=== PATIENT | male | born 1985 | race Hispanic/Latino ===

== ENCOUNTER 2019-04-19 03:44 | Emergency (ER) | payer OTHER, SELFPAY ==
[2019-04-19] MEDS ORDERED: Ibuprofen 200 MG TAB ONE (04:03)
[2019-04-19] MEDS ORDERED: Ondansetron ODT 4 MG TAB ONE (04:12)
[2019-04-19] MEDS ORDERED: Acetaminophen 500 MG TAB ONE (04:46)
== END 2019-04-19 05:25 | disposition home or self-care (01) ==
LOC: NAV ERS 03:44
DX: J10.1 Influenza due to other identified influenza virus with other respiratory manifestations (principal); Z87.891 Personal history of nicotine dependence
CPT/HCPCS: 87081; 87430; 87804; 99283; Q0162

== ENCOUNTER 2019-11-22 20:36 | Emergency (ER) | payer SELFPAY ==
[~2019-11-22 20:36] MED LIST: Iopamidol 370 76% 100 ML VIAL ONE
[2019-11-22 20:46] LABS: #Eosinphils 0.2 thou/uL (0.0-0.7); #Lymphocytes 3.2 thou/uL (1.20-3.40); #Monocytes 0.8 thou/uL (0.11-0.59); #Neutrophils 2.3 thou/uL (1.40-6.50); %Basophils 0.7 % (0.0-1.0); %Eosinophils 3.1 % (0.0-10.0); %Lymphocytes 49.1 % (21.0-51.0); %Monocytes 11.7 % (0.0-10.0); %Neutrophils 35.5 % (42.0-75.0); Hemoglobin 13.7 g/dL (14.0-18.0); Mean Corpuscular HGB CONC 30.6 g/dL (32.0-36.0); Mean Corpuscular Hemoglobin 26.9 pg (27.0-31.0); Mean Corpuscular Volume 87.8 fL (78.0-98.0); Mean Platelet Volume 8.8 fL (7.4-10.4); Platelet Count 193 thou/uL (130-400); Red Blood Cell (RBC) Count 5.09 mill/uL (4.70-6.10); White Blood Cell (WBC) Count 6.5 thou/uL (4.8-10.8)
[2019-11-22 20:55] LABS: INR-International Normal Ratio 1.3; Prothrombin Time 16.3 sec (12.0-14.7)
[2019-11-22 20:56] LABS: PTT 33.9 sec (22.9-36.1)
[2019-11-22 21:05] LABS: ALT (SGPT) 32 U/L (8-55); AST (SGOT) 23 U/L (5-34); Albumin 3.8 g/dL (3.5-5.0); Alkaline Phosphatase 209 U/L (40-110); Anion Gap 15 mmol/L (10-20); BUN (Urea Nitrogen) 11 mg/dL (8.9-20.6); Calc. Creatinine Clearance 0 mL/min (70-130); Carbon Dioxide 22 mmol/L (22-29); Chloride 106 mmol/L (98-107); Estimated GFR-MDRD Greater than 90; Globulin 3.3 g/dL (2.4-3.5); Glucose 101 mg/dL (70-105); Potassium 3.9 mmol/L (3.5-5.1); Protein, Total 7.1 g/dL (6.0-8.3); Sodium 139 mmol/L (136-145)
--- NOTE | 2019-11-22 21:12 | CT ---
CT OF BRAIN PERFORMED WITHOUT CONTRAST ENHANCEMENT: 11/22/19 HISTORY: Stroke symptoms. Left sided weakness and aphasia. Ventricular and cisternal system is within normal limits. 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 There is a fairly large focus of decreased attenuation over the left frontoparietal convexity region that would suggest an acute to subacute in farct. There are no signs of intracerebral hemorrhage or extra-axial fluid collections. No definite r ight sided findings although there is some slightly more prominent sulcal prominence over the right p osterior frontal convexity region. IMPRESSION: Fairly large focus of decreased attenuation along the left posterior frontoparietal region very susp icious for an acute to subacute infarct. It is less likely to represent an underlying mass although t his possibility is not excluded. Findings discussed with Dr. Osuna. POS: [facility] [place]
[2019-11-22] MEDS ORDERED: Aspirin Chewable 81 MG TAB ONE (21:41)
--- NOTE | 2019-11-23 08:51 | CT ---
CT ANGIO OF HEAD AND NECK PERFORMED WITH INTRAVENOUS CONTRAST ENHANCEMENT WITH 3D RECONSTRUCTIONS: HISTORY: Right-sided weakness and aphasia. FINDINGS: The senior software architect film shows an enlarged-appearing heart. Lung apices are clear. The thyroid gland appears enlarged. The arterial opacification is very poor and, therefore, difficult to assess. Stenosis of the carotid arteries. I do not appreciate any signs of any stenosis of either the internal, external, or common carotid arteries on either the right or left side, although the exam is very limited in this respect . The vertebral arteries appear codominant. CT ANGIO OF BRAIN PERFORMED WITH CONTRAST ENHANCEMENT AND 3D RECONSTRUCTIONS: Once again, the arterial opacification is poor, but I see no large branch occlusions or any obvious s igns of thrombus of the proximal anterior middle cerebral arteries or their branches. Area of decrea sed attenuation left posterior frontoparietal region and also possibly a subtle area over the right p osterior frontal convexity are present. IMPRESSION: 1. Very limited examination. No obvious signs of any stenosis of either internal carotid artery or any signs of any large occlusion of either anterior or middle cerebral arteries on either the right o r left side. 2. Area of acute to subacute infarct over the left posterior frontoparietal region. There may be a very subtle area also present over the right posterior frontal area. If this is a real finding on th e right,, this would suggest that these changes could be embolic in nature. Given the large size of the heart, a cardiac etiology should be considered. Findings discussed with Dr. Osuna. Code CR POS: Val
== END 2019-11-22 21:49 | disposition short-term general hospital (02) ==
LOC: NAV ERS 20:36
DX: I63.9 Cerebral infarction, unspecified (principal); I48.91 Unspecified atrial fibrillation; R47.81 Slurred speech
CPT/HCPCS: 0042T; 36416; 70450; 70496; 84484; 93005; 94760; J2997; Q9967

== ENCOUNTER 2020-10-09 01:29 | Emergency (ER) | payer OTHER, SELFPAY ==
[2020-10-09 01:50] LABS: #Lymphocytes 2.6 thou/uL (1.20-3.40); #Monocytes 0.8 thou/uL (0.11-0.59); #Neutrophils 2.8 thou/uL (1.40-6.50); %Basophils 0.7 % (0.0-1.0); %Eosinophils 0.2 % (0.0-10.0); %Lymphocytes 41.6 % (21.0-51.0); %Monocytes 12.5 % (0.0-10.0); Hemoglobin 15.4 g/dL (14.0-18.0); Mean Corpuscular HGB CONC 31.9 g/dL (32.0-36.0); Mean Corpuscular Hemoglobin 27.5 pg (27.0-31.0); Mean Corpuscular Volume 86.1 fL (78.0-98.0); Mean Platelet Volume 8.4 fL (7.4-10.4); Platelet Count 207 thou/uL (130-400); RBC Distribution Width 11.6 % (11.5-14.5); Red Blood Cell (RBC) Count 5.58 mill/uL (4.70-6.10); White Blood Cell (WBC) Count 6.3 thou/uL (4.8-10.8)
[2020-10-09 02:00] LABS: INR-International Normal Ratio 1.1; PTT 30.6 sec (22.9-36.1); Prothrombin Time 14.3 sec (12.0-14.7)
[2020-10-09 02:07] LABS: ALT (SGPT) 40 U/L (8-55); AST (SGOT) 17 U/L (5-34); Alkaline Phosphatase 194 U/L (40-110); Anion Gap 12 mmol/L (10-20); BUN (Urea Nitrogen) 7 mg/dL (8.9-20.6); Bilirubin, Total 0.6 mg/dL (0.2-1.2); Calc. Creatinine Clearance 0 mL/min (70-130); Calcium 9.2 mg/dL (7.8-10.44); Carbon Dioxide 24 mmol/L (22-29); Chloride 107 mmol/L (98-107); Globulin 3.3 g/dL (2.4-3.5); Glucose 125 mg/dL (70-105); Potassium 3.5 mmol/L (3.5-5.1); Protein, Total 7.3 g/dL (6.0-8.3); Sodium 139 mmol/L (136-145)
[2020-10-09 02:08] LABS: Acetaminophen Less than 6.0 mcg/mL (10.0-30.0); Alcohol Less than 10 mg/dL (Less than 10); Salicylate Less than 8.0 mg/dL (15.0-30.0)
[2020-10-09 02:41] LABS: Bilirubin Negative (Negative); Blood, Urine Negative (Negative); Clarity Clear (Clear); Glucose, Urine (Dipstick) Negative (Negative); Ketone, Urine Negative (Negative); Leukocyte Negative (Negative); Nitrite Negative (Negative); Protein, Urine (Dipstick) Negative (Neg-Trace); Urobilinogen 0.2 mg/dL (Less than 2); pH, Urine 7.5 (5.0-9.0)
[2020-10-09 02:56] LABS: Amphetamine Not Detected (NotDetected); Barbiturates Screen Not Detected (NotDetected); Benzodiazepine Screen Not Detected (NotDetected); Cocaine Metabolite Screen Not Detected (NotDetected); Medtox Control Line Valid? VALID (VALID); Methadone Not Detected (NotDetected); Methamphetamine Not Detected (NotDetected); Opiate Screen Not Detected (NotDetected); Oxycodone Screen Not Detected (NotDetected); Phencyclidine (PCP) Not Detected (NotDetected); THC/Cannabinoid Screen Not Detected (NotDetected); Tricyclic Screen Not Detected (NotDetected)
[2020-10-09] MEDS ORDERED: Iopamidol 370 76% 100 ML VIAL ONE (09:00)
== END 2020-10-09 03:12 | disposition short-term general hospital (02) ==
LOC: NAV ERS 01:29
DX: I48.91 Unspecified atrial fibrillation (principal); R53.1 Weakness; R07.9 Chest pain, unspecified; Z79.899 Other long term (current) drug therapy
CPT/HCPCS: 36416; 70450; 70496; 70498; 71045; 80053; 80306; 80307; 81003; 84484; 85025; 85610; 85730; 93005; Q9967